=== PATIENT | male | born 2000 | race Two or more races ===

== ENCOUNTER 2023-01-03 19:02 | Emergency (ER) | payer SELFPAY ==
[~2023-01-03] VITALS: Ht 170.2 cm; Wt 77.3 kg
[2023-01-03] MEDS ORDERED: MORPHINE SULFATE 4 MG/ML SYRINGE IVP ONE (20:00)
[2023-01-03] MEDS ORDERED: ONDANSETRON HCL 4 MG/2 ML VIAL IVP ONE (20:00)
[2023-01-03 22:30] VITALS: BP 145/86; PULSE 70; RESP 24; TEMP 98.6
[2023-01-03] MEDS ORDERED: IBUP-1492 PO (22:30)
== END 2023-01-03 22:39 | disposition home or self-care (01) ==
LOC: EMS 19:04
DX: S83.004A Unspecified dislocation of right patella, initial encounter (principal); X50.0XXA Overexertion from strenuous movement or load, initial encounter; Y93.89 Activity, other specified; Y92.89 Other specified places as the place of occurrence of the external cause; Y99.8 Other external cause status
CPT/HCPCS: 99284; 27560; 96374; 96375; 73562; 73590; J2270; J2405